=== PATIENT | female | born 1965 | race African-American/Black ===

== ENCOUNTER 2016-08-04 07:07 | Inpatient (IN) | payer BC ==
[~2016-08-04] VITALS: Ht 162.6 cm; Wt 86.2 kg
--- NOTE | 2016-08-04 07:45 | PHYS DOC ---
Past Medical History Past Medical History: No Pertinent History Past Surgical History: Hysterectomy, Other Additional Past Surgical Histo: left shoulder, right thumb Additional Information: quit smoking December 2015 Alcohol Use: None Drug Use: None Adult General Chief Complaint Chief Complaint: CHEST PAIN HPI HPI Patient is a 50 year old female who presents with chest pain. Patient reports she woke up this morning at 0345 (normal time she gets up) with pain on the right side of her chest. She reports a "uncomfortable" (not sharp) pain that is worse with movement. No clear inciting event. No prior similar episodes. She does report slight SOB. No h/o cardiac disease. She is a former smoker. FH notable for heart disease in father. She took 325mg ASA prior to coming to ED. Review of Systems Review of Systems Constitutional: Denies fever or chills Eyes: Denies change in visual acuity or eye pain HENT: Denies nasal congestion or sore throat Respiratory: Mild SOB. Denies cough Cardiovascular: R side chest pain GI: Denies abdominal pain, nausea, vomiting, bloody stools or diarrhea : Denies dysuria or hematuria Musculoskeletal: Denies back pain or joint pain Integument: Denies rash or skin lesions Neurologic: Denies headache, focal weakness or sensory changes Current Medications Current Medications Current Medications Medications (Trade) Dose Ordered Sig/Elida Start Time Stop Time Status Last Admin Dose Admin Acetaminophen (Tylenol) 650 mg PRN Q4HRS PRN 08/04/16 09:45 08/05/16 09:44 Morphine Sulfate 2 mg PRN Q2HR PRN 08/04/16 09:45 08/05/16 09:44 Ondansetron HCl (Zofran) 4 mg PRN Q8HRS PRN 08/04/16 09:45 08/05/16 09:44 Allergies Allergies Allergies Coded Allergies Type Severity Reaction Last Updated Verified cortisone Allergy Intermediate rash, itching 08/04/16 Yes Physical Exam Physical Exam Constitutional: Well developed, well nourished, no acute distress, non-toxic appearance HENT: Normocephalic, atraumatic, bilateral external ears normal Eyes: EOMI, conjunctiva normal, no discharge Neck: Normal range of motion, no stridor Cardiovascular: Heart rate normal, regular rhythm, no murmur Lungs & Thorax: Bilateral breath sounds clear to auscultation; R chest wall TTP medially Abdomen: Bowel sounds normal, soft, non-distended, no TTP Skin: Warm, dry, no erythema, no rash Extremities: No obvious deformity, no edema Neurologic: Alert and oriented X 3, no gross deficits noted Current Patient Data Vital Signs Vital Signs Date Time Temp Pulse Resp B/P Pulse Ox O2 Delivery O2 Flow Rate FiO2 08/04/16 08:37 85 16 151/91 97 Room Air 08/04/16 07:13 99.2 99.2 Lab Values Laboratory Tests Test 08/04/16 08:05 White Blood Count 11.6x10^3/uL (4.0-11.0) H Red Blood Count 5.17x10^6/uL (3.50-5.40) Hemoglobin 14.9g/dL (12.0-15.5) Hematocrit 45.3% (36.0-47.0) Mean Corpuscular Volume 88fL (79-100) Mean Corpuscular Hemoglobin 29pg (25-35) Mean Corpuscular Hemoglobin Concent 33g/dL (31-37) Red Cell Distribution Width 14.3% (11.5-14.5) Platelet Count 251x10^3/uL (140-400) Neutrophils (%) (Auto) 63% (31-73) Lymphocytes (%) (Auto) 27% (24-48) Monocytes (%) (Auto) 7% (0-9) Eosinophils (%) (Auto) 2% (0-3) Basophils (%) (Auto) 0% (0-3) Neutrophils # (Auto) 7.3x10^3uL (1.8-7.7) Lymphocytes # (Auto) 3.2x10^3/uL (1.0-4.8) Monocytes # (Auto) 0.9x10^3/uL (0.0-1.1) Eosinophils # (Auto) 0.2x10^3/uL (0.0-0.7) Basophils # (Auto) 0.0x10^3/uL (0.0-0.2) Sodium Level 142mmol/L (136-145) Potassium Level 3.9mmol/L (3.5-5.1) Chloride Level 106mmol/L (98-107) Carbon Dioxide Level 29mmol/L (21-32) Anion Gap 7 (6-14) Blood Urea Nitrogen 7mg/dL (7-20) Creatinine 0.8mg/dL (0.6-1.0) Estimated GFR (Cockcroft-Gault) 91.1 Glucose Level 85mg/dL (70-99) Calcium Level 9.4mg/dL (8.5-10.1) Troponin I Quantitative < 0.017ng/mL (0.000-0.055) Laboratory Tests 08/04/16 08:05 Laboratory Tests 08/04/16 08:05 EKG EKG EKG (my read): sinus rhythm, rate 94, normal axis, intervals wnl, no acute ischemic changes Radiology/Procedures Radiology/Procedures CXR: Impression: No acute radiographic abnormality is seen. Course & Med Decision Making Course & Med Decision Making Pertinent Labs and Imaging studies reviewed. (See chart for details) Patient is 50 year old female who presents with chest pain and SOB. Possible costochondritis, however must also consider ACS. Will check EKG, CXR, labs to evaluate. Has already had 325mg ASA; patient declines need for pain medication at this time. CXR results as above. EKG ok per my read. Labs unremarkable; troponin wnl. Discussed results with patient. Discussed with Dr. Michele, will admit under his care for further evaluation and treatment. Dragon Disclaimer Dragon Disclaimer This electronic medical record was generated, in whole or in part, using a voice recognition dictation system. Departure Departure Impression: Primary Impression: Chest pain Additional Impression: SOB (shortness of breath) Disposition: ADMITTED INPATIENT Admitting Physician: Annel Michele Condition: STABLE Referrals: NO PCP (PCP) Scripts No Active Prescriptions or Reported Meds Problem Qualifiers NAYA CORONEL MD Aug 04, 2016 07:45
--- NOTE | 2016-08-04 07:48 | EKG ---
[facility] [address] [place] [address] Test Date: 2016-08-04 Test Time: 07:15:24 Pat Name: AMY CERVANTES Department: Room: Gender: F Change Booth Attendant: : 1965 Requested By: NAYA CORONEL Order Number: [id number] Reading MD: Elaine Bradshaw Measurements Intervals Casey Rate: 94 P: 52 OK: 136 QRS: 31 QRSD: 80 T: 26 QT: 336 QTc: 425 Interpretive Statements SINUS RHYTHM LEFT ATRIAL ABNORMALITY ABNORMAL ECG RI6.01 No previous ECG available for comparison Electronically Signed On 08-06-2016 18:32:47 [employer] OBJECTS DEVELOPER by Elaine Bradshaw
--- NOTE | 2016-08-04 07:52 | RAD ---
2 view CXR: Clinical indications: Chest pain radiating to the right side for one day. Comparison: January 03, 2016. Findings: No acute lung infiltrate or pleural effusion or pulmonary edema or lung mass or pneumothorax is seen. The heart size, pulmonary vasculature, mediastinum and both chintan are unremarkable. The osseous structures appear intact. Impression: No acute radiographic abnormality is seen.
[2016-08-04 08:24] LABS: BASO % 0 % (0-3); EOS % 2 % (0-3); HEMATOCRIT 45.3 % (36.0-47.0); HEMOGLOBIN 14.9 g/dL (12.0-15.5); LYMPH # 3.2 x10^3/uL (1.0-4.8); LYMPH % 27 % (24-48); MEAN CORPUSCULAR HEMOGLOBIN 29 pg (25-35); MEAN CORPUSCULAR HGB CONC 33 g/dL (31-37); MEAN CORPUSCULAR VOLUME 88 fL (79-100); MONO % 7 % (0-9); NEUT % 63 % (31-73); PLATELET COUNT 251 x10^3/uL (140-400); RED BLOOD COUNT 5.17 x10^6/uL (3.50-5.40); RED CELL DISTRIBUTION WIDTH 14.3 % (11.5-14.5); WHITE BLOOD COUNT 11.6 x10^3/uL (4.0-11.0)
[2016-08-04 08:42] LABS: CALCIUM 9.4 mg/dL (8.5-10.1); CREATININE 0.8 mg/dL (0.6-1.0); GFR 91.1; POTASSIUM 3.9 mmol/L (3.5-5.1)
[2016-08-04] MEDS ORDERED: MORPHINE SULFATE 2 MG/ML DISP.SYRIN. IV PRN (09:45)
[2016-08-04] MEDS ORDERED: ACETAMINOPHEN 325 MG TABLET. PO PRN (09:45)
[2016-08-04] MEDS ORDERED: ONDANSETRON PF 4 MG/2 ML VIAL. IV PRN (09:45)
[2016-08-04 12:24] VITALS: BP 147/95
--- NOTE | 2016-08-04 13:28 | PDOC2 ---
FÁTIMA CARROLL COMBINATION PRESSER 08/04/16 1328: CARDIAC CONSULT DATE OF CONSULT Date of Consult DATE: 08/04/16 TIME: 12:58 REASON FOR CONSULT Reason for Consult: angina, r/o ACS REFERRING PHYSICIAN Referring Physician: Ryne SOURCE Source: Chart review, Patient HISTORY OF PRESENT ILLNESS HISTORY OF PRESENT ILLNESS This is a pleasant 50 yo female admitted for complains of chest pain. Reports that she was getting ready for work this morning then she started having localized throbbing pain to right chest. Still linger but not associated with nausea, vomiting, heartburn, palpitations, SOA, nor dizziness. This is the first time this happened to her. Denies any CAD, VTE, CVA. The last time she saw a PCP was 4 yrs ago. Her right chest pain is exacerbated with palpation and is nonradiating. Denies any recent falls, injury, nor recent heavy lifting. She does take BC powder analgesic almost every day. She does not take any medications. PAST MEDICAL HISTORY Past Medical History OA otherwise no other pertinent history PAST SURGICAL HISTORY Past Surgical History: Arthroscopy (right rotator cuff), Hysterectomy, Other ( right thumb repair) FAMILY HISTORY Family History: Coronary Artery Disease (father CAD in the 80s) SOCIAL HISTORY Smoke: No ALCOHOL: none Drugs: None Lives: with Family ALLERGIES ALLERGIES: Coded Allergies: cortisone (Verified Allergy, Intermediate, rash, itching, 08/04/16) ROS Review of System 14 point ROS evaluated with pertinent positives noted per HPI PHYSICAL EXAM General: Alert, Oriented X3, Cooperative, No acute distress HEENT: Atraumatic, Mucous membr. moist/pink Lungs: Clear to auscultation, Normal air movement Heart: Regular rate, Normal S1, Normal S2, No murmurs Abdomen: Soft, No tenderness Extremities: No cyanosis, No edema Skin: No breakdown, No significant lesion Neuro: Normal speech, Sensation intact Psych/Mental Status: Mental status NL, Mood NL MUSCULOSKELETAL: Osteoarthritic changes both hands VITALS VITALS Vital Signs Date Time Temp Pulse Resp B/P Pulse Ox O2 Delivery O2 Flow Rate FiO2 08/04/16 12:24 98.2 86 16 147/95 94 Room Air 98.2 LABS Lab: Laboratory Tests Test 08/04/16 08:05 White Blood Count 11.6x10^3/uL (4.0-11.0) Red Blood Count 5.17x10^6/uL (3.50-5.40) Hemoglobin 14.9g/dL (12.0-15.5) Hematocrit 45.3% (36.0-47.0) Mean Corpuscular Volume 88fL (79-100) Mean Corpuscular Hemoglobin 29pg (25-35) Mean Corpuscular Hemoglobin Concent 33g/dL (31-37) Red Cell Distribution Width 14.3% (11.5-14.5) Platelet Count 251x10^3/uL (140-400) Neutrophils (%) (Auto) 63% (31-73) Lymphocytes (%) (Auto) 27% (24-48) Monocytes (%) (Auto) 7% (0-9) Eosinophils (%) (Auto) 2% (0-3) Basophils (%) (Auto) 0% (0-3) Neutrophils # (Auto) 7.3x10^3uL (1.8-7.7) Lymphocytes # (Auto) 3.2x10^3/uL (1.0-4.8) Monocytes # (Auto) 0.9x10^3/uL (0.0-1.1) Eosinophils # (Auto) 0.2x10^3/uL (0.0-0.7) Basophils # (Auto) 0.0x10^3/uL (0.0-0.2) Sodium Level 142mmol/L (136-145) Potassium Level 3.9mmol/L (3.5-5.1) Chloride Level 106mmol/L (98-107) Carbon Dioxide Level 29mmol/L (21-32) Anion Gap 7 (6-14) Blood Urea Nitrogen 7mg/dL (7-20) Creatinine 0.8mg/dL (0.6-1.0) Estimated GFR (Cockcroft-Gault) 91.1 Glucose Level 85mg/dL (70-99) Calcium Level 9.4mg/dL (8.5-10.1) Troponin I Quantitative < 0.017ng/mL (0.000-0.055) ASSESSMENT/PLAN ASSESSMENT/PLAN 1. Atypical chest pain: reproducible, localized. Doubt ACS. 2. Accelerated HTN: Possible hypertensive heart disease but likely r/t JOSE GUADALUPE 3. Suspect JOSE GUADALUPE: positive for obesity, morning WINSTON, fatigue during the day, witnessed apnea and snoring at night per spouse 4. Chronic NSAID use: Known as BC powder. Verified with pharmacy- 845 mg of ASA and caffeine 65 mg mixture Recommendations 1. GB sono, TTE 2. TSH, lipids. Continue with Trop series 3. Will need outpt JOSE GUADALUPE workup 4. Weight loss. 5. Start on losartan/HCTZ. 6. GI prophylaxis. Problems: OLI LIANG MD 08/04/16 1939: CARDIAC CONSULT ALLERGIES ALLERGIES: Coded Allergies: cortisone (Verified Allergy, Intermediate, rash, itching, 08/04/16) ASSESSMENT/PLAN ASSESSMENT/PLAN Patient seen and examined. I agree with above nurse practitioner note. 50-year-old woman presenting with atypical right-sided chest pain. This is likely noncardiac. Examination is unremarkable. Echocardiogram is within normal limits. Supportive care from a cardiac perspective. Okay to discharge with follow-up on an outpatient basis with primary care physician. Follow-up with cardiology as needed. Thank you for this consultation. Problems: FÁTIMA CARROLL APRN Aug 04, 2016 13:28 OLI LIANG MD Aug 04, 2016 19:39
[2016-08-04 14:13] LABS: CHOLESTEROL/HDL RATIO 3.9
[2016-08-04] MEDS: HYDROCHLOROTHIAZIDE 12.5 MG CAPSULE. PO SCH (14:28)
[2016-08-04] MEDS: LOSARTAN POTASSIUM 25 MG TABLET. PO SCH (14:28)
[2016-08-04] MEDS: PANTOPRAZOLE 40 MG TABLET. PO SCH (14:28)
[2016-08-04 15:00] VITALS: BP 155/87
[2016-08-04] MEDS ORDERED: CALCIUM CARBONATE 500 MG TAB.CHEW PO PRN (16:00)
--- NOTE | 2016-08-04 16:14 | PDOC1 ---
History and Physical Date of Admission Date of Admission DATE: 08/04/16 TIME: 16:12 Identification/Chief Complaint Chief Complaint chest pain Source Source: Chart review, Patient History of Present Illness History of Present Illness MS. Lucio is a 50 year old femaleadmit with acute chest pain. She normally has heaedaches in the AM, steady frontal WINSTON without aura or throbbing. Today, she awoke with with a new pain on the right side of her chest. Dull pain, 5/10, minor reproducible to right side of chest. she takes 875mg aspirin most days, and has a large volume caffeine intake Past Medical History Cardiovascular: No pertinent hx Pulmonary: No pertinent hx GI: No pertinent hx Heme/Onc: No pertinent hx Hepatobiliary: No pertinent hx Psych: No pertinent hx Rheumatologic: No pertinent hx Infectious disease: No pertinent hx Endocrine: No pertinent hx Dermatology: No pertinent hx Past Surgical History Past Surgical History: Arthroscopy (right rotator cuff), Hysterectomy, Other ( right thumb repair) Family History Family History: No Significant, Coronary Artery Disease (father CAD in the 80s) Social History Smoke: No ALCOHOL: none Drugs: None Current Problem List Problem List Problems Medical Problems: (1) Chest pain Status: Acute (2) SOB (shortness of breath) Status: Acute Problems: Current Medications Current Medications Current Medications Ondansetron HCl (Zofran) 4 mg PRN Q8HRS PRN IV NAUSEA/VOMITING; Start 08/04/16 at 09:45; Stop 08/05/16 at 09:44 Morphine Sulfate 2 mg PRN Q2HR PRN IV PAIN; Start 08/04/16 at 09:45; Stop 08/05 at 09:44 Acetaminophen (Tylenol) 650 mg PRN Q4HRS PRN PO FEVER; Start 08/04/16 at 09:45 ; Stop 08/05/16 at 09:44 Pantoprazole Sodium (Protonix) 40 mg DAILYAC PO Last administered on 08/04/16 14:28; Start 08/04/16 at 14:00 Losartan Potassium (Cozaar) 25 mg DAILY PO Last administered on 08/04/16 14:28 ; Start 08/04/16 at 14:00 Hydrochlorothiazide (Microzide) 12.5 mg DAILY PO Last administered on 14:28; Start 08/04/16 at 14:00 Calcium Carbonate/ Glycine (Tums) 500 mg PRN AFTMEALHC PRN PO INDIGESTION; Start 08/04/16 at 16:00 Active Scripts Active No Active Prescriptions or Reported Medications Allergies Allergies: Coded Allergies: cortisone (Verified Allergy, Intermediate, rash, itching, 08/04/16) ROS General: YES: Fatigue, No: Appetite, Chills, Malaise, Night Sweats, Other PSYCHOLOGICAL ROS: No: Anxiety, Behavioral Disorder, Concentration difficultie , Decreased libido, Depression, Disorientation, Hallucinations, Hostility, Irritablity, Memory difficulties, Mood Swings, Obsessive thoughts, Other, Physical abuse, Sexual abuse, Sleep disturbances, Suicidal ideation Eyes: No Blurry vision, No Decreased vision, No Double vision, No Dry eyes, No Excessive tearing, No Eye Pain, No Itchy Eyes, No Loss of vision, No Other, No Photophobia, No Scotomata, No Uses contacts, No Uses glasses Hematological and Lymphatic: No: Bleeding Problems, Blood Clots, Blood Transfusions, Brusing, Night Sweats, Other, Pallor, Swollen Lymph Nodes Respiratory: No: Cough, Hemoptysis, Orthopnea, Other, Pleuritic Pain, SOB with excertion, Shortness of breath, Sputum Changes, Stridor, Tachypnea, Wheezing Cardiovascular: No Chest Pain, No Edema, No Lt Headedness, No Orthopnea, No Other, No Palpitations, No Paroxysmal Noc. Dyspnea Gastrointestinal: No Abdominal Pain, No Constipation, No Diarrhea, No Hematochezia, No Melena, No Nausea, No Other, No Vomiting Genitourinary: No , No , No , No , No , No , No , No Discharge, No Dysuria, No Flank Pain, No Frequency, No Hematuria, No Incontinence, No Other, No Pain, No Retention, No Urgency Musculoskeletal: No Gait Disturbance, No Joint Pain, No Joint Stiffness, No Joint Swelling, No Muscle Pain, No Muscular Weakness, No Other, No Pain In:, No Swelling In: Neurological: No Behavorial Changes, No Bowel/Bladder ControlChng, No Confusion , No Dizziness, No Gait Disturbance, No Headaches, No Impaired Coord/balance, No Memory Loss, No Numbness/Tingling, No Other, No Seizures, No Speech Problems , No Tremors, No Visual Changes, No Weakness Skin: No Acne, No Dry Skin, No Eczema, No Hair Changes, No Lumps, No Mole Changes, No Mottling, No Nail Changes, No Other, No Pruritus, No Rash, No Skin Lesion Changes Physical Exam General: Alert, Oriented X3, Cooperative, No acute distress HEENT: Atraumatic, PERRLA, EOMI, Mucous membr. moist/pink Lungs: Clear to auscultation, Normal air movement, Other (pain to palpation right side of chest) Heart: S1S2, no murmurs Abdomen: Normal bowel sounds, Soft Rectal Exam: not examined, deferred Extremities: No clubbing, No edema, Normal pulses Skin: No rashes, No significant lesion Neuro: Normal speech, Normal tone, Sensation intact, Cranial nerves 3-12 NL Psych/Mental Status: Mood NL Vitals Vitals Vital Signs Date Time Temp Pulse Resp B/P Pulse Ox O2 Delivery O2 Flow Rate FiO2 08/04/16 15:00 98.0 96 18 155/87 Room Air 98.0 08/04/16 12:24 94 Labs Labs Laboratory Tests Test 08/04/16 08:05 08/04/16 15:35 White Blood Count 11.6x10^3/uL (4.0-11.0) Red Blood Count 5.17x10^6/uL (3.50-5.40) Hemoglobin 14.9g/dL (12.0-15.5) Hematocrit 45.3% (36.0-47.0) Mean Corpuscular Volume 88fL (79-100) Mean Corpuscular Hemoglobin 29pg (25-35) Mean Corpuscular Hemoglobin Concent 33g/dL (31-37) Red Cell Distribution Width 14.3% (11.5-14.5) Platelet Count 251x10^3/uL (140-400) Neutrophils (%) (Auto) 63% (31-73) Lymphocytes (%) (Auto) 27% (24-48) Monocytes (%) (Auto) 7% (0-9) Eosinophils (%) (Auto) 2% (0-3) Basophils (%) (Auto) 0% (0-3) Neutrophils # (Auto) 7.3x10^3uL (1.8-7.7) Lymphocytes # (Auto) 3.2x10^3/uL (1.0-4.8) Monocytes # (Auto) 0.9x10^3/uL (0.0-1.1) Eosinophils # (Auto) 0.2x10^3/uL (0.0-0.7) Basophils # (Auto) 0.0x10^3/uL (0.0-0.2) Sodium Level 142mmol/L (136-145) Potassium Level 3.9mmol/L (3.5-5.1) Chloride Level 106mmol/L (98-107) Carbon Dioxide Level 29mmol/L (21-32) Anion Gap 7 (6-14) Blood Urea Nitrogen 7mg/dL (7-20) Creatinine 0.8mg/dL (0.6-1.0) Estimated GFR (Cockcroft-Gault) 91.1 Glucose Level 85mg/dL (70-99) Calcium Level 9.4mg/dL (8.5-10.1) Troponin I Quantitative < 0.017ng/mL (0.000-0.055) < 0.017ng/mL (0.000-0.055) Triglycerides Level 247mg/dL (0-150) Cholesterol Level 220mg/dL (0-200) LDL Cholesterol, Calculated 114mg/dL (0-100) VLDL Cholesterol, Calculated 49mg/dL (0-40) HDL Cholesterol 57mg/dL (40-60) Cholesterol/HDL Ratio 3.9 Thyroid Stimulating Hormone (TSH) 0.409uIU/mL (0.358-3.74) Laboratory Tests Test 08/04/16 08:05 08/04/16 15:35 White Blood Count 11.6x10^3/uL (4.0-11.0) Red Blood Count 5.17x10^6/uL (3.50-5.40) Hemoglobin 14.9g/dL (12.0-15.5) Hematocrit 45.3% (36.0-47.0) Mean Corpuscular Volume 88fL (79-100) Mean Corpuscular Hemoglobin 29pg (25-35) Mean Corpuscular Hemoglobin Concent 33g/dL (31-37) Red Cell Distribution Width 14.3% (11.5-14.5) Platelet Count 251x10^3/uL (140-400) Neutrophils (%) (Auto) 63% (31-73) Lymphocytes (%) (Auto) 27% (24-48) Monocytes (%) (Auto) 7% (0-9) Eosinophils (%) (Auto) 2% (0-3) Basophils (%) (Auto) 0% (0-3) Neutrophils # (Auto) 7.3x10^3uL (1.8-7.7) Lymphocytes # (Auto) 3.2x10^3/uL (1.0-4.8) Monocytes # (Auto) 0.9x10^3/uL (0.0-1.1) Eosinophils # (Auto) 0.2x10^3/uL (0.0-0.7) Basophils # (Auto) 0.0x10^3/uL (0.0-0.2) Sodium Level 142mmol/L (136-145) Potassium Level 3.9mmol/L (3.5-5.1) Chloride Level 106mmol/L (98-107) Carbon Dioxide Level 29mmol/L (21-32) Anion Gap 7 (6-14) Blood Urea Nitrogen 7mg/dL (7-20) Creatinine 0.8mg/dL (0.6-1.0) Estimated GFR (Cockcroft-Gault) 91.1 Glucose Level 85mg/dL (70-99) Calcium Level 9.4mg/dL (8.5-10.1) Troponin I Quantitative < 0.017ng/mL (0.000-0.055) < 0.017ng/mL (0.000-0.055) Triglycerides Level 247mg/dL (0-150) Cholesterol Level 220mg/dL (0-200) LDL Cholesterol, Calculated 114mg/dL (0-100) VLDL Cholesterol, Calculated 49mg/dL (0-40) HDL Cholesterol 57mg/dL (40-60) Cholesterol/HDL Ratio 3.9 Thyroid Stimulating Hormone (TSH) 0.409uIU/mL (0.358-3.74) VTE Prophylaxis Ordered VTE Prophylaxis Devices: No VTE Pharmacological Prophylaxi: Yes Assessment/Plan Assessment/Plan Atypical chest pain: reproducible to right chest wall echo and RUQ US ordered try lidoderm patch HTN: poor control, Cozaar and HCtz started by CV obese, BMI 32 mild elevation in Lipids, lifestyle change headache, chronic in AM, may be excessive caffeine intake, her family is concerned about possible carbon monoxide in the house, they will buy a monitor tele GUCCI Ko MD Aug 04, 2016 16:14
[2016-08-04] MEDS: LIDOCAINE (700MG/PATCH) PATCH. TD SCH (16:15)
[2016-08-04 19:06] VITALS: BP 129/80
--- NOTE | 2016-08-04 19:38 | CARD ---
APPROVED REPORT EXAM: Two-dimensional and M-mode echocardiogram with Doppler and color Doppler. Other Information Quality : Good INDICATION Hypertension/HCVD Chest Pain 2D DIMENSIONS RVDd2.5 (2.9-3.5cm)Left Atrium(2D)3.0 (1.6-4.0cm) IVSd1.2 (0.7-1.1cm)Aortic Root(2D)3.0 (2.0-3.7cm) LVDd4.3 (3.9-5.9cm)LVOT Diameter2.0 (1.8-2.4cm) PWd1.2 (0.7-1.1cm)LVDs2.6 (2.5-4.0cm) FS (%) 30.0 %SV58.8 ml LVEF(%)60.0 (>50%) Aortic Valve AoV Peak Ashutosh.120.6cm/sAoV VTI20.2cm AO Peak GR.5.8mmHgLVOT Peak Ashutosh.109.4cm/s LVOT VTI 19.42cmAO Mean GR.4mmHg BEATRIZ (VMAX)2.52qm4SPT (VTI)3.15cm2 Mitral Valve MV E Ypaxrveb72.3cm/sMV DECEL UNHE552ut MV A Rmcimoap51.7cm/sMV JGP34ru E/A Ratio0.9MVA (PHT)2.60cm2 TDI E/Lateral E'9.4E/Medial E'7.5 Tricuspid Valve TR P. Doehyurr020ag/sRAP [id number] TR Peak Gr.35ovMdDSEF76ruMw Pulmonary Vein S1 Yqdnbbnj78.8cm/sD2 Qgsuqvhs88.4cm/s PVa rjaxfviq851qvnz LEFT VENTRICLE The left ventricle is normal size. There is mild concentric left ventricular hypertrophy. The left ve ntricular systolic function is normal and the ejection fraction is within normal range. The Ejection Fraction is 55-60%. There is normal LV segmental wall motion. Transmitral Doppler flow pattern is Gra de I-abnormal relaxation pattern. RIGHT VENTRICLE The right ventricle is normal size. The right ventricular systolic function is normal. ATRIA The left atrium size is normal. The right atrium size is normal. The interatrial septum is intact wit h no evidence for an atrial septal defect or patent foramen ovale as noted on 2-D or Doppler imaging. AORTIC VALVE The aortic valve is normal in structure and function. Doppler and Color Flow revealed no significant aortic regurgitation. There is no significant aortic valvular stenosis. MITRAL VALVE The mitral valve is normal in structure and function. There is no evidence of mitral valve prolapse. There is no mitral valve stenosis. Doppler and Color-flow revealed trace to mild mitral regurgitation . TRICUSPID VALVE The tricuspid valve is normal in structure and function. Doppler and Color Flow revealed trace tricus pid regurgitation. The PA pressure was estimated at 21 mmHg. There is no tricuspid valve stenosis. PULMONIC VALVE The pulmonary valve is normal in structure and function. Doppler and Color Flow revealed mild to mode rate pulmonic valvular regurgitation. There is no pulmonic valvular stenosis. GREAT VESSELS The aortic root is normal in size. The ascending aorta is normal in size. The IVC is normal in size a nd collapses >50% with inspiration. PERICARDIAL EFFUSION There is no evidence of significant pericardial effusion. Critical Notification Critical Value: No <Conclusion> The left ventricular systolic function is normal and the ejection fraction is within normal range. The Ejection Fraction is 55-60%. There is normal LV segmental wall motion. Doppler and Color Flow revealed mild to moderate pulmonic valvular regurgitation.
[2016-08-04 23:00] VITALS: BP 115/60
[2016-08-05 03:00] VITALS: BP 113/73
[2016-08-05 07:20] VITALS: BP 111/80
[2016-08-05] MEDS: PANTOPRAZOLE 40 MG TABLET. PO SCH (07:44)
[2016-08-05] MEDS: HYDROCHLOROTHIAZIDE 12.5 MG CAPSULE. PO SCH (07:45)
[2016-08-05] MEDS: LOSARTAN POTASSIUM 25 MG TABLET. PO SCH (07:45)
[2016-08-05] MEDS: LIDOCAINE (700MG/PATCH) PATCH. TD SCH (07:45)
--- NOTE | 2016-08-05 09:29 | RAD ---
ABDOMEN LTD History:Right chest pain Comparison: None Findings:Multiple sonographic images of the abdomen are submitted. Pancreas is not well visualized due to bowel gas. There is segmental visualization of the inferior vena cava. Right kidney measured 11.3 x 4.6 x 4.57 m, no hydronephrosis. Gallbladder is present, contracted appearance without significant intraluminal abnormality. Gallbladder wall is somewhat prominent 0.4 cm. There is no pericholecystic fluid. Common bile duct is within normal limits of 0.4 cm. No free fluid is demonstrated. Hepatic echotexture is within normal limits, no focal hepatic mass demonstrated. Impression: 1.Gallbladder is contracted appearance without pericholecystic fluid or obvious intraluminal abnormality, gallbladder wall prominence which may be accentuated by the contracted appearance.
[2016-08-05 11:10] VITALS: BP 112/84
--- NOTE | 2016-08-05 11:34 | PDOC ---
PROGRESS NOTES Chief Complaint Chief Complaint 1. Atypical Chest pain 2. Shortness of breath 3. WINSTON 4. HTN History of Present Illness History of Present Illness The pt states she is feeling better today. No new chest pain or WINSTON at this time. Asking about possible discharge today RICH RN- Vitals stable at this time Vitals Vitals Vital Signs Date Time Temp Pulse Resp B/P Pulse Ox O2 Delivery O2 Flow Rate FiO2 08/05/16 07:45 77 113/73 08/05/16 07:40 Room Air 08/05/16 03:00 98.4 20 91 98.4 Physical Exam General: Alert, Oriented X3, Cooperative, No acute distress Heart: Regular rate, Normal S1, Normal S2, No murmurs Lungs: Clear Abdomen: Normal bowel sounds, Soft Extremities: No clubbing, No edema, Normal pulses Skin: No rashes, No significant lesion Labs LABS Laboratory Tests Test 08/04/16 15:35 08/04/16 22:00 Troponin I Quantitative < 0.017ng/mL (0.000-0.055) < 0.017ng/mL (0.000-0.055) Review of Systems Review of Systems Complains of Fatigue Complains of Hunger All other ROS negative Assessment and Plan Assessmemt and Plan Problems Medical Problems: (1) Chest pain Status: Acute (2) SOB (shortness of breath) Status: Acute 1. Atypical Chest pain 2. Shortness of breath 3. WINSTON 4. HTN Plan: - Troponins x3 Negative - Cardiology Consulted- appreciate recommendations - Chest pain noncardiac in nature - Work-up negative - U/S of gallbladder ordered - Will continue pt on Cozaar and HCTZ on discharge f - F/u with PCP on discharge - Disposition: Ok for discharge today Problems: Comment Review of Relevant I have reviewed the following items chanelle (where applicable) has been applied. Labs Laboratory Tests Test 08/04/16 08:05 08/04/16 15:35 08/04/16 22:00 White Blood Count 11.6x10^3/uL (4.0-11.0) Red Blood Count 5.17x10^6/uL (3.50-5.40) Hemoglobin 14.9g/dL (12.0-15.5) Hematocrit 45.3% (36.0-47.0) Mean Corpuscular Volume 88fL (79-100) Mean Corpuscular Hemoglobin 29pg (25-35) Mean Corpuscular Hemoglobin Concent 33g/dL (31-37) Red Cell Distribution Width 14.3% (11.5-14.5) Platelet Count 251x10^3/uL (140-400) Neutrophils (%) (Auto) 63% (31-73) Lymphocytes (%) (Auto) 27% (24-48) Monocytes (%) (Auto) 7% (0-9) Eosinophils (%) (Auto) 2% (0-3) Basophils (%) (Auto) 0% (0-3) Neutrophils # (Auto) 7.3x10^3uL (1.8-7.7) Lymphocytes # (Auto) 3.2x10^3/uL (1.0-4.8) Monocytes # (Auto) 0.9x10^3/uL (0.0-1.1) Eosinophils # (Auto) 0.2x10^3/uL (0.0-0.7) Basophils # (Auto) 0.0x10^3/uL (0.0-0.2) Sodium Level 142mmol/L (136-145) Potassium Level 3.9mmol/L (3.5-5.1) Chloride Level 106mmol/L (98-107) Carbon Dioxide Level 29mmol/L (21-32) Anion Gap 7 (6-14) Blood Urea Nitrogen 7mg/dL (7-20) Creatinine 0.8mg/dL (0.6-1.0) Estimated GFR (Cockcroft-Gault) 91.1 Glucose Level 85mg/dL (70-99) Calcium Level 9.4mg/dL (8.5-10.1) Troponin I Quantitative < 0.017ng/mL (0.000-0.055) < 0.017ng/mL (0.000-0.055) < 0.017ng/mL (0.000-0.055) Triglycerides Level 247mg/dL (0-150) Cholesterol Level 220mg/dL (0-200) LDL Cholesterol, Calculated 114mg/dL (0-100) VLDL Cholesterol, Calculated 49mg/dL (0-40) HDL Cholesterol 57mg/dL (40-60) Cholesterol/HDL Ratio 3.9 Thyroid Stimulating Hormone (TSH) 0.409uIU/mL (0.358-3.74) Laboratory Tests Test 08/04/16 15:35 08/04/16 22:00 Troponin I Quantitative < 0.017ng/mL (0.000-0.055) < 0.017ng/mL (0.000-0.055) Medications Current Medications Ondansetron HCl (Zofran) 4 mg PRN Q8HRS PRN IV NAUSEA/VOMITING; Start 08/04/16 at 09:45; Stop 08/05/16 at 09:44; Status DC Morphine Sulfate 2 mg PRN Q2HR PRN IV PAIN; Start 08/04/16 at 09:45; Stop 08/05 at 09:44; Status DC Acetaminophen (Tylenol) 650 mg PRN Q4HRS PRN PO FEVER; Start 08/04/16 at 09:45 ; Stop 08/05/16 at 09:44; Status DC Pantoprazole Sodium (Protonix) 40 mg DAILYAC PO Last administered on 08/05/16 07:44; Start 08/04/16 at 14:00 Losartan Potassium (Cozaar) 25 mg DAILY PO Last administered on 08/05/16 07:45 ; Start 08/04/16 at 14:00 Hydrochlorothiazide (Microzide) 12.5 mg DAILY PO Last administered on 07:45; Start 08/04/16 at 14:00 Calcium Carbonate/ Glycine (Tums) 500 mg PRN AFTMEALHC PRN PO INDIGESTION; Start 08/04/16 at 16:00 Lidocaine (Lidoderm) 1 patch DAILY TD Last administered on 08/05/16 07:45; Start 08/04/16 at 16:15 Active Scripts Active No Active Prescriptions or Reported Medications Vitals/I & O Vital Sign - Last 24 Hours 08/04/16 08/04/16 08/04/16 08/04/16 12:24 14:28 15:00 19:06 Temp 98.2 98.0 98.5 98.2 98.0 98.5 Pulse 86 86 96 80 Resp 16 18 20 B/P 147/95 147/95 155/87 129/80 Pulse Ox 94 92 O2 Delivery Room Air Room Air Room Air 08/04/16 08/04/16 08/05/1608/05/17 20:15 23:00 03:00 07:40 Temp 98.1 98.4 98.1 98.4 Pulse 81 77 Resp 20 20 B/P 115/60 113/73 Pulse Ox 94 91 O2 Delivery Room Air Room Air Room Air Room Air 08/05/16 07:45 Pulse 77 B/P 113/73 Intake and Output 08/04/16 08/04/16 08/05/16 15:00 23:00 07:00 Intake Total 300 ml 240 ml 1080 ml Balance 300 ml 240 ml 1080 ml LUIS ANTONIO HARRIS III DO Aug 05, 2016 11:34
== END 2016-08-05 13:47 | disposition home or self-care (01) | DRG 206 ==
LOC: ER 07:07 → 5 SOUTH 09:37
PROVIDERS: ADMIT Internal Medicine; ATTEND Internal Medicine
DX: M94.0 Chondrocostal junction syndrome [Tietze] (principal); Z87.891 Personal history of nicotine dependence; E66.9 Obesity, unspecified; I10 Essential (primary) hypertension; I20.9 Angina pectoris, unspecified; Z79.1 Long term (current) use of non-steroidal anti-inflammatories (NSAID); Z90.710 Acquired absence of both cervix and uterus; Z68.32 Body mass index [BMI] 32.0-32.9, adult; Z82.49 Family history of ischemic heart disease and other diseases of the circulatory system; Z88.8 Allergy status to other drugs, medicaments and biological substances
CPT/HCPCS: 36415; 71020; 76705; 80048; 80061; 84443; 84484; 85027; 93005; 93306; 99285-25

== ENCOUNTER 2017-09-17 13:21 | Inpatient (IN) | payer BC ==
[2017-09-17] MEDS: IV NORMAL SALINE 1000ML BAG 1,000 ML IV (14:05)
[2017-09-17 14:30] LABS: ADD MAN DIFF? NO
[2017-09-17 14:33] LABS: BASO % 0 % (0-3); EOS # 0.1 x10^3/uL (0.0-0.7); EOS % 2 % (0-3); HEMATOCRIT 44.7 % (36.0-47.0); HEMOGLOBIN 15.1 g/dL (12.0-15.5); LYMPH # 2.2 x10^3/uL (1.0-4.8); LYMPH % 29 % (24-48); MEAN CORPUSCULAR HEMOGLOBIN 29 pg (25-35); MEAN CORPUSCULAR HGB CONC 34 g/dL (31-37); MEAN CORPUSCULAR VOLUME 87 fL (79-100); MONO # 0.6 x10^3/uL (0.0-1.1); MONO % 8 % (0-9); NEUT # 4.6 x10^3uL (1.8-7.7); NEUT % 61 % (31-73); PLATELET COUNT 259 x10^3/uL (140-400); RED BLOOD COUNT 5.16 x10^6/uL (3.50-5.40); RED CELL DISTRIBUTION WIDTH 13.8 % (11.5-14.5); WHITE BLOOD COUNT 7.6 x10^3/uL (4.0-11.0)
[2017-09-17 14:51] LABS: ALBUMIN 3.5 g/dL (3.4-5.0); ALBUMIN/GLOBULIN RATIO 0.9 (1.0-1.7); ALK PHOS 91 U/L (46-116); ALT (SGPT) 29 U/L (14-59); ANION GAP 6 (6-14); AST (SGOT) 17 U/L (15-37); BLOOD UREA NITROGEN 10 mg/dL (7-20); BUN/CREATININE RATIO 11 (6-20); CALCIUM 8.7 mg/dL (8.5-10.1); CARBON DIOXIDE 32 mmol/L (21-32); CHLORIDE 104 mmol/L (98-107); CREATININE 0.9 mg/dL (0.6-1.0); GFR 79.3; GLUCOSE 104 mg/dL (70-99); LIPASE 233 U/L (73-393); MAGNESIUM 2.5 mg/dL (1.8-2.4); SODIUM 142 mmol/L (136-145); TOTAL BILIRUBIN 0.3 mg/dL (0.2-1.0); TOTAL PROTEIN 7.3 g/dL (6.4-8.2)
[2017-09-17 14:57] LABS: TROPONINI < 0.017 ng/mL (0.000-0.055)
[2017-09-17 15:01] LABS: CKMB INDEX 0.4 % (0-4); CKMB MASS 0.8 ng/mL (0.0-3.6); CREATINE KINASE 196 U/L (26-192)
[2017-09-17 15:01] LABS: NT-PRO BNP 18 pg/mL (0-124)
[2017-09-17] MEDS: POTASSIUM CHLORIDE 20 MEQ/15 ML ORAL LIQUID. PO (16:43)
[2017-09-17 19:09] LABS: TROPONINI < 0.017 ng/mL (0.000-0.055)
[2017-09-17] MEDS: POTASSIUM CHLORIDE 20 MEQ TABLET.ER. PO (20:38)
[2017-09-17 22:08] LABS: TROPONINI < 0.017 ng/mL (0.000-0.055)
[2017-09-18 04:57] LABS: ADD MAN DIFF? NO
[2017-09-18 05:06] LABS: BASO % 0 % (0-3); EOS # 0.2 x10^3/uL (0.0-0.7); EOS % 2 % (0-3); HEMATOCRIT 40.6 % (36.0-47.0); HEMOGLOBIN 13.6 g/dL (12.0-15.5); LYMPH # 3.1 x10^3/uL (1.0-4.8); LYMPH % 40 % (24-48); MEAN CORPUSCULAR HEMOGLOBIN 29 pg (25-35); MEAN CORPUSCULAR HGB CONC 34 g/dL (31-37); MEAN CORPUSCULAR VOLUME 87 fL (79-100); MONO # 0.8 x10^3/uL (0.0-1.1); MONO % 10 % (0-9); NEUT # 3.8 x10^3uL (1.8-7.7); NEUT % 48 % (31-73); PLATELET COUNT 254 x10^3/uL (140-400); RED BLOOD COUNT 4.68 x10^6/uL (3.50-5.40); WHITE BLOOD COUNT 7.9 x10^3/uL (4.0-11.0)
[2017-09-18 05:27] LABS: ANION GAP 9 (6-14); BLOOD UREA NITROGEN 9 mg/dL (7-20); CALCIUM 8.9 mg/dL (8.5-10.1); CARBON DIOXIDE 26 mmol/L (21-32); CHLORIDE 107 mmol/L (98-107); CHOLESTEROL 149 mg/dL (0-200); CREATININE 0.7 mg/dL (0.6-1.0); GFR 105.9; GLUCOSE 133 mg/dL (70-99); HDLC 44 mg/dL (40-60); LDLC 86 mg/dL (0-100); NON-HDL CHOLESTEROL 105 mg/dL (0-129); POTASSIUM 3.4 mmol/L (3.5-5.1); SODIUM 142 mmol/L (136-145); TRIGLYCERIDES 97 mg/dL (0-150); VLDLC 19 mg/dL (0-40)
[2017-09-18 05:33] LABS: CHOLESTEROL/HDL RATIO 3.4
[2017-09-18 05:54] LABS: THYROID STIM HORMONE (TSH) 0.671 uIU/mL (0.358-3.74)
[2017-09-18] MEDS: POTASSIUM CHLORIDE 20 MEQ TABLET.ER. PO (09:06)
[2017-09-18] MEDS: LOSARTAN POTASSIUM 50 MG TABLET. PO (09:07)
== END 2017-09-18 15:09 | disposition home or self-care (01) | DRG 392 ==
LOC: ER 13:21 → 5 NORTH 15:30
DX: K52.9 Noninfective gastroenteritis and colitis, unspecified (principal); E66.9 Obesity, unspecified; K21.9 Gastro-esophageal reflux disease without esophagitis; E78.5 Hyperlipidemia, unspecified; E87.6 Hypokalemia; I10 Essential (primary) hypertension; M19.90 Unspecified osteoarthritis, unspecified site; F17.200 Nicotine dependence, unspecified, uncomplicated; Z90.710 Acquired absence of both cervix and uterus; Z88.8 Allergy status to other drugs, medicaments and biological substances; Z82.49 Family history of ischemic heart disease and other diseases of the circulatory system; Z68.37 Body mass index [BMI] 37.0-37.9, adult
CPT/HCPCS: 36415; 71045; 80048; 80053; 80061; 82553; 83690; 83735; 83880; 84443; 84484; 85025; 93005; 93306; 99285; 99285-25; J7030